=== PATIENT | female | born 1950 | race Caucasian/White ===

== ENCOUNTER → 2016-08-15 | Outpatient (CLI) | payer OTHER | END | disposition home or self-care (01) | LOC: CDC 14:15 | DX: Z01.810 Encounter for preprocedural cardiovascular examination (principal); G56.02 Carpal tunnel syndrome, left upper limb; M65.4 Radial styloid tenosynovitis [de Quervain] | CPT/HCPCS: 93000 ==

== ENCOUNTER 2016-08-22 13:19 | Day surgery (SDC) | payer OTHER ==
[~2016-08-22] VITALS: Ht 160 cm; Wt 81.6 kg
[~2016-08-22 13:19] MED LIST: COZAAR50 MG PO; CRESTOR10 MG PO; DILTIAZEM 24HR240 MG PO; GEMFIBROZIL600 MG PO; JARDIANCE25 MG PO; METFORMIN HCL500 MG PO
[2016-08-22 13:50] LABS: POINT-OF-CARE METER ID UU14174212
[2016-08-22 13:57] VITALS: BP 145/67
[2016-08-22 16:11] LABS: POINT-OF-CARE METER ID UU13113675
[2016-08-22 16:20] VITALS: BP 137/63
[2016-08-22 17:17] VITALS: BP 139/63
== END 2016-08-22 17:27 | disposition home or self-care (01) ==
LOC: SDC 13:19
PROVIDERS: Orthopaedic Surgery Hand Surgery
DX: G56.02 Carpal tunnel syndrome, left upper limb (principal); M65.4 Radial styloid tenosynovitis [de Quervain]; E11.9 Type 2 diabetes mellitus without complications; I10 Essential (primary) hypertension
CPT/HCPCS: 82948; J0690; J2250; S0020